=== PATIENT | female | born 1945 | race Asian ===

== ENCOUNTER 2023-01-02 15:09 | Emergency (ER) | payer MEDICARE, OTHER ==
[~2023-01-02] VITALS: Ht 152.4 cm; Wt 79.5 kg
[2023-01-02 16:41] LABS: BASOPHILS % (AUTO) 1.1 % (0.0-2.0); EOSINOPHILS % (AUTO) 3.8 % (1.0-6.0); HEMATOCRIT 30.3 % (36-46); HEMOGLOBIN 9.8 g/dL (12.0-16.0); LYMPHOCYTES # (AUTO) 2.1 K/uL (1.0-4.8); LYMPHOCYTES % (AUTO) 26.6 % (22.0-44.0); MEAN CORPUSCULAR HEMOGLOBIN 29.9 pg (26.0-34.0); MEAN CORPUSCULAR HGB CONC 32.4 G/dL (31.0-37.0); MEAN CORPUSCULAR VOLUME 92 fL (80-100); MONOCYTES # (AUTO) 0.6 K/uL (0.1-1.0); NEUTROPHILS # (AUTO) 4.7 K/uL (1.8-7.7); NEUTROPHILS % (AUTO) 60.5 % (40.0-70.0); PLATELET COUNT (AUTO) 337 K/uL (150-450); RED BLOOD CELL COUNT(AUTO) 3.28 MIL/uL (4.00-5.20)
[2023-01-02 16:52] LABS: ANION GAP 4 mmol/L (8-16); CALCIUM, TOTAL 9.1 mg/dL (8.8-10.5); CARBON DIOXIDE 33 mmol/L (22-29); CHLORIDE 105 mmol/L (98-107); CREATININE 0.81 mg/dL (0.60-1.30); GLOMERULAR FILTR. RATE CALC > 60 mL/min (>60); GLUCOSE,RANDOM 131 mg/dL (70-110); POTASSIUM 3.8 mmol/L (3.5-5.1); SODIUM SERUM 142 mmol/L (136-145); UREA NITROGEN, BLOOD 13 mg/dL (7-18)
[2023-01-02] MEDS ORDERED: LORA10TA7 PO (16:53)
[2023-01-02] MEDS ORDERED: CARV25 PO (16:53)
[2023-01-02] MEDS ORDERED: MAGN400T57 PO (16:53)
[2023-01-02] MEDS ORDERED: CHOL25TA4 PO (16:53)
[2023-01-02] MEDS ORDERED: AMOX1TAB15 PO (16:53)
[2023-01-02] MEDS ORDERED: OMEP20 PO ×2 (16:53)
[2023-01-02] MEDS ORDERED: AMLO-258 PO (16:53)
[2023-01-02] MEDS ORDERED: ASPI-1450 PO (16:53)
[2023-01-02] MEDS ORDERED: FLUT1BLS3 IH (16:53)
[2023-01-02] MEDS ORDERED: AMLO-257 PO (16:53)
[2023-01-02] MEDS ORDERED: APIX5TAB PO (16:53)
[2023-01-02] MEDS ORDERED: FLUT44H IH (16:53)
[2023-01-02] MEDS ORDERED: ATOR20TA86 PO (16:53)
[2023-01-02] MEDS ORDERED: LOSA-382 PO (16:53)
[2023-01-02 16:56] LABS: INR 1.1 (0.9-1.1); PROTHROMBIN TIME 11.4 SEC (9.4-11.6)
[2023-01-02 17:01] LABS: ALANINE AMINOTRANSFERASE 23 U/L (12-78); ALBUMIN 2.7 g/dL (3.4-5.0); ALKALINE PHOSPHATASE 90 U/L (46-116); ASPARTATE AMINOTRANSFERASE 23 U/L (15-37); BILIRUBIN,TOTAL 0.2 mg/dL (0.1-1.0); TOTAL PROTEIN, SERUM 7.7 g/dL (6.4-8.2)
[2023-01-02 17:03] LABS: B-TYPE NATRIURETIC PEPTIDE 51 pg/mL (0-100)
[2023-01-02 18:13] VITALS: BP 121/63
== END 2023-01-02 20:13 | disposition home or self-care (01) ==
LOC: EMS 15:23
DX: R07.9 Chest pain, unspecified (principal); D64.9 Anemia, unspecified; R73.9 Hyperglycemia, unspecified; I48.91 Unspecified atrial fibrillation; I11.0 Hypertensive heart disease with heart failure; I50.9 Heart failure, unspecified
CPT/HCPCS: 71045; 80053; 83880; 84484; 85025; 85610; 85730; 93005; 99283; 36415-L1; 36415-TC